=== PATIENT | female | born 1955 | race Two or more races ===

== ENCOUNTER 2023-04-13 14:06 | Outpatient (CLI) | payer OTHER | END 2023-04-13 14:14 | disposition home or self-care (01) | LOC: MRI 14:06 | PROVIDERS: ATTEND Orthopaedic Surgery | DX: M75.121 Complete rotator cuff tear or rupture of right shoulder, not specified as traumatic (principal); M25.511 Pain in right shoulder | CPT/HCPCS: 73221 ==

== ENCOUNTER → 2023-11-23 07:41 | Outpatient (CLI) | payer OTHER ==
[2023-11-23 08:28] LABS: HEMATOCRIT 34.9 % (36.0-45.00); HEMOGLOBIN 11.7 g/dL (12.0-15.00); MEAN CELL VOLUME 75.2 fL (80.00-100.00); MEAN CORPUSCULAR HEMOGLOBIN 25.1 pg (27.00-32.0); MEAN CORPUSCULAR HGB CONC 33.4 g/dl (32.0-36.0); PLATELET COUNT 328 K/uL (150-450); RED BLOOD COUNT 4.64 M/uL (4.00-6.00); RED CELL DISTRIBUTION WIDTH 16.1 % (11.5-14.5)
[2023-11-23 09:36] LABS: MANUAL PLATELET COUNT 474
[2023-11-23 09:40] LABS: ALBUMIN 3.7 gm/dL (3.4-5.0); BILIRUBIN TOTAL 0.59 mg/dL (0.3-1.2); CALCIUM 8.6 mg/dL (8.5-10.1); CREATININE SERUM 0.76 mg/dL (0.55-1.02); GFR 75.23; GLOBULINA 3.6 G/DL (2.4-3.5); PLATELET ESTIMATE INCREASED (NORMAL); POTASSIUM 4.22 mEq/L (3.5-5.1); TOTAL PROTEIN 7.3 gm/dL (6.4-8.2); TSH 1.11 uIU/mL (0.358-3.74)
[2023-11-23 12:46] LABS: FOLIC ACID 18.65 ng/ml (4.78-20)
[2023-11-25 09:09] LABS: hgb a 53.8 % (96.4-98.8); hgb f 0.4 % (0.0-2.0); hgb s 42.8 % (0.0)
[2023-11-25 17:06] LABS: g6pd quant 266 (127-427); rbc 4.87 x10E6/uL (3.77-5.28)
[2023-11-27 17:09] LABS: INTRINSIC FACTOR BLOCKING AB 1.1 AU/mL (0.0-1.1)
[2023-11-28 09:05] LABS: PARIETAL CELL ANTIBODIES 16.3 Units (0.0-20.0)
== END | disposition home or self-care (01) ==
LOC: LAB 07:41
PROVIDERS: ATTEND Internal Medicine Hematology & Oncology
DX: D50.8 Other iron deficiency anemias (principal); R79.9 Abnormal finding of blood chemistry, unspecified; I10 Essential (primary) hypertension; R74.02 Elevation of levels of lactic acid dehydrogenase [LDH]; K76.89 Other specified diseases of liver; D55.0 Anemia due to glucose-6-phosphate dehydrogenase [G6PD] deficiency; E03.8 Other specified hypothyroidism; E06.3 Autoimmune thyroiditis; D57.3 Sickle-cell trait; E78.2 Mixed hyperlipidemia; M06.9 Rheumatoid arthritis, unspecified

== ENCOUNTER 2023-12-26 08:15 | Outpatient (CLI) | payer OTHER ==
[2023-12-26 10:21] LABS: ALBUMIN 3.7 gm/dL (3.4-5.0); BILIRUBIN TOTAL 0.48 mg/dL (0.3-1.2); CALCIUM 8.8 mg/dL (8.5-10.1); CREATININE SERUM 0.85 mg/dL (0.55-1.02); GFR 66.12; GLOBULINA 3.5 G/DL (2.4-3.5); POTASSIUM 3.68 mEq/L (3.5-5.1); TOTAL PROTEIN 7.2 gm/dL (6.4-8.2)
[2023-12-26 10:24] LABS: HEMATOCRIT 35.3 % (36.0-45.00); HEMOGLOBIN 11.8 g/dL (12.0-15.00); MEAN CELL VOLUME 75.5 fL (80.00-100.00); MEAN CORPUSCULAR HEMOGLOBIN 25.3 pg (27.00-32.0); MEAN CORPUSCULAR HGB CONC 33.5 g/dl (32.0-36.0); PLATELET COUNT 287 K/uL (150-450); RED BLOOD COUNT 4.68 M/uL (4.00-6.00); RED CELL DISTRIBUTION WIDTH 15.5 % (11.5-14.5)
[2023-12-27 09:16] LABS: MANUAL PLATELET COUNT 320
[2023-12-27 09:17] LABS: PLATELET ESTIMATE NORMAL (NORMAL)
== END 2023-12-26 08:21 | disposition home or self-care (01) ==
LOC: LAB 08:15
PROVIDERS: ATTEND Internal Medicine Hematology & Oncology
DX: D57.3 Sickle-cell trait (principal); I10 Essential (primary) hypertension; E78.2 Mixed hyperlipidemia; M06.9 Rheumatoid arthritis, unspecified; R74.02 Elevation of levels of lactic acid dehydrogenase [LDH]; K76.89 Other specified diseases of liver; D50.8 Other iron deficiency anemias

== ENCOUNTER 2024-07-06 08:41 | Outpatient (CLI) | payer OTHER | END 2024-07-06 08:53 | disposition home or self-care (01) | LOC: SONOGRAMA 08:41 | PROVIDERS: ATTEND Internal Medicine Hematology & Oncology | DX: E04.2 Nontoxic multinodular goiter (principal); I10 Essential (primary) hypertension; M25.511 Pain in right shoulder ==